=== PATIENT | male | born 1995 | race Two or more races ===

== ENCOUNTER 2020-06-22 21:01 | Emergency (ER) | payer OTHER ==
[~2020-06-22] VITALS: Ht 182.9 cm; Wt 181.4 kg
[2020-06-22 21:01] VITALS: BP 149/79
--- NOTE | 2020-06-22 22:03 | NUR ---
PT LEFT WITHOUT ACI
== END 2020-06-22 22:04 | disposition home or self-care (01) ==
LOC: ER 21:09
DX: Z02.89 Encounter for other administrative examinations (principal); F13.90 Sedative, hypnotic, or anxiolytic use, unspecified, uncomplicated; E66.9 Obesity, unspecified; F10.10 Alcohol abuse, uncomplicated; Y90.9 Presence of alcohol in blood, level not specified; Z68.43 Body mass index [BMI] 50.0-59.9, adult

== ENCOUNTER 2022-10-25 00:30 | Emergency (ER) | payer OTHER ==
[~2022-10-25] VITALS: Ht 190.5 cm; Wt 238.6 kg
[2022-10-25] MEDS ORDERED: ALPR1TAB2 PO (00:59)
[2022-10-25] MEDS ORDERED: ALPRAZOLAM 0.5 MG TABLET ONE (00:59)
[2022-10-25] MEDS ORDERED: ALPRAZOLAM 0.5 MG TABLET PO ONE (01:00)
[2022-10-25 01:23] VITALS: BP 178/92; TEMP 98.5; O2SAT 98
== END 2022-10-26 01:20 | disposition home or self-care (01) ==
LOC: ER 03:09
DX: F13.939 Sedative, hypnotic or anxiolytic use, unspecified with withdrawal, unspecified (principal); Z60.2 Problems related to living alone